=== PATIENT | female | born 1980 | race American Indian/Alaskan Native ===

== ENCOUNTER 2022-03-16 08:45 | Emergency (ER) | payer BC ==
[2022-03-16] MEDS ORDERED: hydrALAZINE 20 MG/1 ML INJ ONE (09:16)
--- NOTE | 2022-03-16 09:47 | XRay Report ---
CHEST 1 VIEW 03/16/2022 9:34 AM INDICATION / CLINICAL INFORMATION: CHEST DISCOMFORT. COMPARISON: None available. FINDINGS: SUPPORT DEVICES: None. HEART / MEDIASTINUM: No significant abnormality. LUNGS / PLEURA: No significant pulmonary or pleural abnormality. No pneumothorax. ADDITIONAL FINDINGS: No significant additional findings. IMPRESSION: 1. No acute findings. Signer Name: Raj Yang MD Signed: 03/16/2022 9:42 AM Workstation Name: [id number]
[2022-03-16] MEDS ORDERED: MORPHINE 4 MG/1 ML INJ IV ONE (09:55)
--- NOTE | 2022-03-16 09:59 | Emergency Department Report ---
<MARINA MICHAEL - Last Filed: 03/16/22 18:19> ED General Adult HPI - General Chief complaint: Abdominal Pain Stated complaint: ABDOMINAL PAIN/VOMITING Time Seen by Provider: 03/16/22 09:21 - Related Data Previous Rx's Medication Instructions Recorded Last Taken Type Amlodipine Besylate/Benazepril 1 each PO QDAY #30 cap 03/16/22 Unknown Rx [Lotrel 10-40 mg] HYDROcodone/APAP 5-325 [[place] 1 each PO Q6HR PRN #7 tablet 03/16/22 Unknown Rx 5/325] metFORMIN [Glucophage] 500 mg PO BID #60 03/16/22 Unknown Rx Allergies Allergy/AdvReac Type Severity Reaction Status Date / Time No Known Allergies Allergy Verified 03/16/22 08:53 ED Past Medical Hx - Medications Home Medications: Home Medications Medication Instructions Recorded Confirmed Last Taken Type Amlodipine Besylate/Benazepril 1 each PO QDAY #30 cap 03/16/22 Unknown Rx [Lotrel 10-40 mg] HYDROcodone/APAP 5-325 [[place] 1 each PO Q6HR PRN #7 tablet 03/16/22 Unknown Rx 5/325] metFORMIN [Glucophage] 500 mg PO BID #60 03/16/22 Unknown Rx ED Course - Reevaluation(s) Reevaluation #1: 03/16/22 18:19 Patient has significant improvement of her symptoms, but does request a little pain medication prior to discharge. Patient has a OB ultrasound that shows a 6- week that appears to be endocervical canal, this is consistent with a threatened miscarriage considering the patient's complaints. Patient has a beta-hCG of over 1300, so will follow-up with OB. Patient will be discharged home with pain medications, her blood pressure medication (Lotrel), and her metformin. ED Medical Decision Making - Lab Data Result diagrams: 03/16/22 09:36 03/16/22 09:36 - Radiology Data Radiology results: report reviewed ED Disposition Clinical Impression: Threatened in early , Primary hypertension, Hyperglycemia due to diabetes mellitus Disposition: 01 HOME / SELF CARE / HOMELESS Is pt being admited?: No Does the pt Need Aspirin: No Condition: Stable Instructions: Hyperglycemia, [id number], Hypertension, Adult, [id number], Threatened Miscarriage, [id number], Diabetes Mellitus Type 2 in Adults (ED), Abdominal Pain (ED), Hypertension (ED) Prescriptions: metFORMIN [Glucophage] 500 mg PO BID #60 Amlodipine Besylate/Benazepril [Lotrel 10-40 mg] 1 each PO QDAY #30 cap HYDROcodone/APAP 5-325 [[place] 5/325] 1 each PO Q6HR PRN #7 tablet PRN Reason: Pain Referrals: PRIMARY CARE,MD [Primary Care Provider] - 3-5 Days Forms: Work/School Release Form(ED) Time of Disposition: 18:29 <MORIAH HOUSE - Last Filed: 03/17/22 06:24> ED General Adult HPI - General PUI?: No Source: EMS Mode of arrival: Stretcher Limitations: No Limitations - History of Present Illness Initial comments: This is a 41-year-old female with medical history of diabetes and also hypertension as well as bronchitis state that she is medically noncompliant which patient has been on and off of her medication for the past 6 months and patient said that she just forgets to take it. The reason the patient came into the ER today is because nausea and also vomiting started yesterday. Patient has generalized abdominal discomfort as well; at no specific quadrant. Patient denies any other symptoms such as fever chill night sweat dizziness blurred vision lightheadedness headache tinnitus ear pain runny nose sore throat loss of taste loss of smell chest pain palpitation short breath cough diarrhea constipation dysuria myalgia arthralgia new rash and heat or cold intolerance. Severity scale (0 -10): 5 ED Review of Systems ROS: Stated complaint: ABDOMINAL PAIN/VOMITING Other details as noted in HPI Comment: All other systems reviewed and negative Constitutional: no symptoms reported, see HPI Eyes: as per HPI ENT: as per HPI Respiratory: no symptoms reported, see HPI Cardiovascular: as per HPI Endocrine: no symptoms reported, see HPI Gastrointestinal: as per HPI, abdominal pain, nausea, vomiting. denies: diarrhea, constipation, hematemesis, melena, hematochezia Genitourinary: denies: dysuria, frequency, hematuria Musculoskeletal: as per HPI Skin: as per HPI Neurological: as per HPI Psychiatric: as per HPI Hematological/Lymphatic: as per HPI ED Past Medical Hx - Past Medical History Previous Medical History?: Yes Hx Hypertension: Yes (NOT ON MEDS) Hx Diabetes: Yes (METFORMIN) ED Physical Exam - General Limitations: No Limitations General appearance: alert, in distress (mildly) - Head Head exam: Present: atraumatic, normocephalic, normal inspection - Eye Eye exam: Present: normal appearance, PERRL, EOMI Pupils: Present: normal accommodation - ENT ENT exam: Present: normal exam, mucous membranes moist - Neck Neck exam: Present: normal inspection, tenderness, full ROM - Respiratory Respiratory exam: Present: normal lung sounds bilaterally - Cardiovascular Cardiovascular Exam: Present: regular rate, normal rhythm, normal heart sounds - GI/Abdominal GI/Abdominal exam: Present: soft, tenderness (generalized ), normal bowel sounds. Absent: distended, guarding, rebound, rigid - Extremities Exam Extremities exam: Present: normal inspection, full ROM, normal capillary refill - Back Exam Back exam: Present: normal inspection, full ROM - Neurological Exam Neurological exam: Present: alert, oriented X3, CN II-XII intact - Psychiatric Psychiatric exam: Present: normal affect, normal mood - Skin Skin exam: Present: normal color ED Course Vital Signs 03/16/22 03/16/22 03/16/22 08:50 09:12 09:45 Temperature 98.2 F 98.6 F Pulse Rate 88 100 H Respiratory 16 17 Rate Blood Pressure 223/99 Blood Pressure 220/110 [Left] O2 Sat by Pulse 97 100 Oximetry 03/16/22 03/16/22 03/16/22 10:00 10:01 10:15 Temperature Pulse Rate 90 89 85 Respiratory 20 23 Rate Blood Pressure 212/90 181/89 163/82 Blood Pressure [Left] O2 Sat by Pulse 95 100 Oximetry 03/16/22 03/16/22 03/16/22 10:31 11:01 11:29 Temperature 98.6 F Pulse Rate 87 92 H Respiratory 6 L 12 26 H Rate Blood Pressure 166/76 163/76 Blood Pressure [Left] O2 Sat by Pulse 97 100 99 Oximetry 03/16/22 03/16/22 03/16/22 11:31 12:01 12:31 Temperature Pulse Rate 94 H 93 H 93 H Respiratory 23 16 30 H Rate Blood Pressure 182/80 176/64 180/84 Blood Pressure [Left] O2 Sat by Pulse 99 100 96 Oximetry 03/16/22 03/16/22 03/16/22 13:01 13:31 14:01 Temperature Pulse Rate 94 H 94 H 93 H Respiratory 24 12 11 L Rate Blood Pressure 182/86 169/77 177/78 Blood Pressure [Left] O2 Sat by Pulse 94 99 99 Oximetry 03/16/22 03/16/22 03/16/22 14:30 15:27 15:31 Temperature Pulse Rate 94 H 100 H 94 H Respiratory 13 10 L 22 Rate Blood Pressure 189/91 195/97 Blood Pressure [Left] O2 Sat by Pulse 99 100 Oximetry 03/16/22 03/16/22 03/16/22 16:01 16:31 17:01 Temperature Pulse Rate 100 H 95 H 94 H Respiratory 17 17 16 Rate Blood Pressure 194/99 180/75 172/85 Blood Pressure [Left] O2 Sat by Pulse 100 100 100 Oximetry - Reevaluation(s) Reevaluation #1: 03/16/22 13:43 LABS CAME BACK WITH +HCG IN URINE AND I HAVE WENT BACK TO THE ROOM. PATIENT NOW TELLS ME SHE STARTED HAVING VAGINAL BLEEDING AND STATES SHE IS ON HER MENSTRUAL CYCLE RIGHT NOW. CURRENTLY NO SIGNIFICANT ABDOMINAL DISCOMFORT. I WILL ORDER BLOOD HCG CAROLINE/QUAL AND OB US WELL FOR FURTHER EVALUATION. 03/16/22 13:46 03/16/22 14:07 CALLED US AND THEY ARE IN OB DELIVERY RIGHT NOW; AFTER, THEY WILL DO US FOR THIS PATIENT. 03/16/22 15:21 PENDING US RESULTS; WILL SIGN OUT PATIENT CARE TO MY [place] DR. MICHAEL. ED Medical Decision Making - Lab Data Result diagrams: 03/16/22 09:36 03/16/22 09:36 Critical care attestation.: If time is entered above; I have spent that time in minutes in the direct care of this critically ill patient, excluding procedure time.
[2022-03-16] MEDS: ONDANSETRON 4 MG/2 ML INJ IV ONE (10:05)
[2022-03-16 11:41] LABS: Calcium 8.6 mg/dL (8.4-10.2)
[2022-03-16 11:56] LABS: Hematocrit 31.5 % (30.3-42.9); Hemoglobin 10.2 gm/dl (10.1-14.3); Mean Corpuscular HGB Conc 32 % (30-34); Mean Corpuscular Volume 87 fl (79-97); Red Blood Count 3.64 M/mm3 (3.65-5.03); Red Cell Distribution Width 16.8 % (13.2-15.2)
[2022-03-16 13:02] LABS: Platelet Count 259 K/mm3 (140-440)
[2022-03-16 14:49] LABS: Amphetamine Screen,Urine Negative; Benzodiazepines Screen,Urine Negative; Cannabinoid Screen,Urine Negative; Cocaine Screen,Urine Negative; Methadone Screen,Urine Negative; Opiate Screen,Urine Negative
[2022-03-16 14:57] LABS: Hyaline Casts,Urine 5 /LPF; Mucus,Urine FEW /HPF
[2022-03-16 15:01] LABS: RBC,Urine > 182.0 /HPF (0.0-6.0)
[2022-03-16 15:02] LABS: Color,Urine Straw (Yellow)
[2022-03-16 15:04] LABS: Bilirubin,Urine Negative (Negative); Blood,Urine Large (Negative); PH,Urine 6.5 (5.0-7.0); Protein,Urine >2000 mg dL mg/dL (Negative)
[2022-03-16 15:05] LABS: Urobilinogen,Urine < 2.0 mg/dL (<2.0)
--- NOTE | 2022-03-16 15:34 | Ultrasound Report ---
ULTRASOUND OBSTETRIC INDICATION / CLINICAL INFORMATION: UNSURE OF CAME + FOR HCG. Vaginal spotting/bleeding TECHNIQUE: Transabdominal and Transvaginal. COMPARISON: None available. FINDINGS: GESTATIONAL SAC: Gestational sac is noted. It appears to be in the cervical canal. pole and yol k sac are seen within it. YOLK SAC: Yolk sac is noted EMBRYO/FETUS: pole is noted. [employer]-rump length is 5 mm - [employer]-Rump Length = 0.5 cm = 6, 1 weeks, days - Heart Rate, beats per minute (if present) = no heartbeat is identified. ADNEXA: No significant abnormality. FREE FLUID: None. ADDITIONAL FINDINGS: None. IMPRESSION: 1. Gestational sac with pole is noted. This appears to be located within the cervical canal. No heartbeat is identified Signer Name: Magnus Turcios MD Signed: 03/16/2022 3:30 PM Workstation Name: [id number]
--- NOTE | 2022-03-16 15:34 | Ultrasound Report ---
ULTRASOUND OBSTETRIC INDICATION / CLINICAL INFORMATION: UNSURE OF CAME + FOR HCG. Vaginal spotting/bleeding TECHNIQUE: Transabdominal and Transvaginal. COMPARISON: None available. FINDINGS: GESTATIONAL SAC: Gestational sac is noted. It appears to be in the cervical canal. pole and yol k sac are seen within it. YOLK SAC: Yolk sac is noted EMBRYO/FETUS: pole is noted. [place]-rump length is 5 mm - [employer]-Rump Length = 0.5 cm = 6, 1 weeks, days - Heart Rate, beats per minute (if present) = no heartbeat is identified. ADNEXA: No significant abnormality. FREE FLUID: None. ADDITIONAL FINDINGS: None. IMPRESSION: 1. Gestational sac with pole is noted. This appears to be located within the cervical canal. No heartbeat is identified Signer Name: Magnus Turcios MD Signed: 03/16/2022 3:30 PM Workstation Name: [id number]
[2022-03-16 17:28] LABS: INR 0.98 (0.87-1.13)
[2022-03-16 17:29] LABS: Partial Thromboplastin Time 27.3 Sec. (24.2-36.6)
[2022-03-16] MEDS ORDERED: MORPHINE 2 MG/1 ML INJ IV ONE (18:18)
[2022-03-16 18:25] VITALS: BP 172/85
== END 2022-03-16 19:18 | disposition home or self-care (01) ==
LOC: ED 08:45
DX: R10.9 Unspecified abdominal pain (principal); Z79.899 Other long term (current) drug therapy
CPT/HCPCS: 36415; 71045; 76801; 76817; 80053; 80307; 81001; 83735; 84484; 84702; 84703; 85027; 85610; 85730; 86900; 86901; 87086; 96374; 96375; 96376; 99285; J0360; J2270; J2405; J3490